=== PATIENT | male | born 1990 | race American Indian/Alaskan Native ===

== ENCOUNTER 2017-09-25 03:16 | Emergency (ER) | payer SELFPAY ==
[2017-09-25] MEDS ORDERED: Sodium Chloride 0.9% 1,000 ML IV STA (03:30)
--- NOTE | 2017-09-25 03:52 | ED PDOC ---
HPI: Psych/Substance Abuse Chief Complaint (Provider): Alcohol abuse - Brought in by EMS History Per: Family History/Exam Limitations: intoxication Onset/Duration Of Symptoms: Hrs Current Symptoms Are (Timing): Still Present Modifying Factor(s): Alcohol, Marijuana Additional Complaint(s): 26 yo male with no known medical problems, according to sister, brought in by EMS for evaluation of alcohol abuse. Sister states he was drinking vodka cranberry with her earlier in the night then began to vomit. PT vomiting on arrival. <Rand Alberto - Last Filed: 09/25/17 05:48> <Sam Esteban - Last Filed: 09/26/17 17:49> Time Seen by Provider: 09/25/17 03:25 Chief Complaint (Nursing): Alcohol Ingestion Past Medical History Reviewed: Historical Data, Nursing Documentation, Vital Signs Vital Signs: Last Vital Signs Temp 98.9 F 09/25/17 03:23 Pulse 76 09/25/17 03:23 Resp 18 09/25/17 03:23 BP 147/95 H 09/25/17 03:23 Pulse Ox 98 09/25/17 03:23 - Medical History PMH: No Chronic Diseases - Surgical History Surgical History: No Surg Hx - Family History Family History: States: No Known Family Hx - Living Arrangements Living Arrangements: With Family - Social History Current smoker - smoking cessation education provided: No <Rand Alberto - Last Filed: 09/25/17 05:48> Vital Signs: Last Vital Signs Temp 98.0 F 09/25/17 10:05 Pulse 86 09/25/17 10:05 Resp 16 09/25/17 10:05 BP 138/79 09/25/17 10:05 Pulse Ox 100 09/25/17 10:05 <Sam Esteban - Last Filed: 09/26/17 17:49> - Allergies Allergies/Adverse Reactions: Allergies Allergy/AdvReac Type Severity Reaction Status Date / Time No Known Allergies Allergy Verified 09/25/17 03:23 Review of Systems Review Of Systems: ROS cannot be obtained secondary to pt's inabilty to answer questions. Constitutional: Negative for: Fever, Chills <Rand Alberto - Last Filed: 09/25/17 05:48> Physical Exam - Reviewed Nursing Documentation Reviewed: Yes Vital Signs Reviewed: Yes - Physical Exam Appears: Positive for: Well, Non-toxic, No Acute Distress Head Exam: Positive for: ATRAUMATIC, NORMAL INSPECTION, NORMOCEPHALIC Skin: Positive for: Normal Color, Warm, DRY Eye Exam: Positive for: Normal appearance, EOMI, PERRL ENT: Positive for: Normal ENT Inspection Neck: Positive for: Normal, Painless ROM Cardiovascular/Chest: Positive for: Regular Rate, Rhythm Respiratory: Positive for: Normal Breath Sounds. Negative for: Accessory Muscle Use, Respiratory Distress Gastrointestinal/Abdominal: Positive for: Normal Exam, Soft. Negative for: Tenderness Back: Positive for: Normal Inspection Extremity: Positive for: Normal ROM Neurologic/Psych: Positive for: Alert, Oriented <Rand Alberto - Last Filed: 09/25/17 05:48> - Laboratory Results Result Diagrams: 09/25/17 04:50 - ECG O2 Sat by Pulse Oximetry: 98 <Rand Alberto - Last Filed: 09/25/17 05:48> - Laboratory Results Result Diagrams: 09/25/17 04:50 09/25/17 04:50 <Sam Esteban - Last Filed: 09/26/17 17:49> Medical Decision Making Medical Decision Makin: Pt awake, stating he needs to pee. Pt asked if he did any drugs tonight but does not given a clear answer. Urine drug screen ordered. Endorsed pending sobriety. <Rand Alberto - Last Filed: 09/25/17 05:48> Disposition - Patient ED Disposition Is Patient to be Admitted: Transfer of Care - Disposition Disposition: Transfer of Care Disposition Time: 06:00 <Rand Alberto - Last Filed: 09/25/17 05:48> Counseled Patient/Family Regarding: Studies Performed, Diagnosis - Disposition Patient Signed Over To: Pamela Camacho <Sam Esteban - Last Filed: 09/26/17 17:49> - Clinical Impression Clinical Impression: Alcohol abuse with intoxication, Alcohol abuse, Cannabis abuse - Disposition Referrals: [facility] [Outside] Condition: STABLE Additional Instructions: PATIENT MEDICALLY AND PSYCHIATRICALLY CLEARED FOR INCARCERATION. Prescriptions: Ondansetron [Zofran Odt] 4 mg PO Q8H PRN #15 odt PRN Reason: Nausea/Vomiting Instructions: Marijuana Use and Addiction, Alcohol Abuse and Alcoholism (DC)
[2017-09-25 05:24] LABS: ALB/GLOB RATIO 1.2 (1.0-2.1); ALBUMIN 4.6 g/dL (3.5-5.0); ALT/SGPT 33 U/L (21-72); AST/SGOT 32 U/L (17-59); BLOOD UREA NITROGEN 19 mg/dl (9-20); CALCIUM 9.4 mg/dL (8.4-10.2); GFR AFRICAN-AMERICAN > 60; GFR NON-AFRICAN AMERICAN > 60
[2017-09-25 06:12] LABS: MEAN CELL VOLUME 96.8 fl (80.0-94.0); MEAN CORPUSCULAR HEMOGLOBIN 32.4 pg (27.0-31.0); MEAN CORPUSCULAR HGB CONC 33.4 g/dL (33.0-37.0); RBC 4.62 Mil/uL (4.40-5.90); RED CELL DISTRIBUTION WIDTH 12.4 % (11.5-14.5); WHITE BLOOD COUNT 7.6 K/uL (4.8-10.8)
[2017-09-25 07:04] LABS: BARBITURATES, UR NEGATIVE (NEGATIVE); BENZODIAZEPINES, UR NEGATIVE (NEGATIVE); OPIATES, UR NEGATIVE (NEGATIVE); PHENCYCLIDINE, UR NEGATIVE (NEGATIVE)
[2017-09-25] MEDS ORDERED: Potassium Chloride 20 mEq ER Tab PO STA (07:36)
--- NOTE | 2017-09-25 07:59 | ED PDOC ---
- Laboratory Results Result Diagrams: 09/25/17 04:50 09/25/17 04:50 - ECG O2 Sat by Pulse Oximetry: 98 (RA) Pulse Ox Interpretation: Normal Medical Decision Making Medical Decision Making: Time: 0700 Patient signed out to me by Dr. Esteban pending sobriety and reevaluation. Scribe Attestation: Documented by Sarah Doan, acting as a scribe for Pamela Camacho MD Provider Scribe Attestation: All medical record entries made by the Scribe were at my direction and personally dictated by me. I have reviewed the chart and agree that the record accurately reflects my personal performance of the history, physical exam, medical decision making, and the department course for this patient. I have also personally directed, reviewed, and agree with the discharge instructions and disposition. Disposition - Clinical Impression Clinical Impression: Alcohol abuse with intoxication, Alcohol abuse, Cannabis abuse - POA Present On Arrival: None - Disposition Referrals: [facility] [Outside] Disposition: Discharged/Transfer to Law Enforcement Disposition Time: 09:53 Condition: STABLE Additional Instructions: PATIENT MEDICALLY AND PSYCHIATRICALLY CLEARED FOR INCARCERATION. Prescriptions: Ondansetron [Zofran Odt] 4 mg PO Q8H PRN #15 odt PRN Reason: Nausea/Vomiting Instructions: Marijuana Use and Addiction, Alcohol Abuse and Alcoholism (DC) Forms: [facility] (Setswana)
[2017-09-25 10:13] VITALS: BP 138/79; PULSE 86; RESP 16; TEMP 98; O2SAT 100
== END 2017-09-25 10:16 ==
LOC: H.ER 03:16
DX: F10.129 Alcohol abuse with intoxication, unspecified (principal); F12.10 Cannabis abuse, uncomplicated
CPT/HCPCS: 80053; 82948; 85027; 96360; 99284; G0480; J2405; J7040